=== PATIENT | female | born 1980 | race Caucasian/White ===

== ENCOUNTER → 2016-07-17 | Outpatient (CLI) | payer BC ==
[~2016-07-17] MED LIST: CARB200T3 PO; GADAVIST IV PRN; INSPMPNVLG; LEVO75TA5 PO
--- NOTE | 2016-07-17 12:09 | DIAGNOSTIC IMAGING REPORT ---
MRI OF THE BRAIN WITHOUT AND WITH IV CONTRAST CLINICAL HISTORY: Intractable headaches. Seizure. COMPARISON STUDY: 02/24/2009 TECHNIQUE: MRI of the brain was performed from the vertex to the skull base utilizing various T1 and T2 weighted sequences. Following the IV administration of 6 mL of Gadavist contrast, additional enhanced images were obtained. FINDINGS: Sagittal T1, axial diffusion, proton density and T2 weighted axial, coronal FLAIR, and pre and post axial T1-weighted images were acquired. These were supplemented with post gadolinium coronal T1 weighted images. No intra or extra-axial mass lesions are visualized. Axial diffusion-weighted images reveal no evidence of acute or subacute infarction. There is no evidence of ventricular dilatation. Proton density T2-weighted and FLAIR images reveal no significant intraparenchymal signal abnormalities. There are no abnormal flow voids. There is no evidence of pathologic enhancement. IMPRESSION: Normal MRI of the brain. Electronically signed by: Roney Gandara M.D. 07/17/2016 12:07 PM Dictated Date/Time: 07/17/2016 12:04 PM
== END | disposition home or self-care (01) ==
LOC: C.MRIBC 11:11
PROVIDERS: ATTEND Physician Assistant
DX: R51 Headache (principal)